=== PATIENT | female | born 1930 | race Caucasian/White ===

== ENCOUNTER 2019-11-29 10:44 | Inpatient (IN) | payer MEDICARE ==
[~2019-11-29] VITALS: Ht 167.6 cm; Wt 64.0 kg
[2019-11-29 14:54] LABS: INR 1.1 (0.8-3.0); PROTHROMBIN TIME 12.3 SECONDS (9.7-12.8)
[2019-11-29] MEDS ORDERED: NORVASC2.5 MG PO (15:01)
[2019-11-29] MEDS ORDERED: XALATAN EYE DROPS OD (15:02)
[2019-11-29] MEDS ORDERED: SIMBRINZA 0.2%-18 ML OP (15:03)
[2019-11-29 15:04] LABS: ALBUMIN 3.9 gm/dL (3.5-5.0); BILIRUBIN,TOTAL 1.3 mg/dL (0.0-1.0); CALCIUM 8.8 mg/dL (8.4-10.2); CREATININE, serum 1.11 (0.52-1.25); POTASSIUM 3.9 mmol/L (3.4-5.0); TOTAL PROTEIN 6.8 gm/dL (6.4-8.2)
[2019-11-29] MEDS ORDERED: MULTI-VITAMIN W1 TA1 PO (15:04)
[2019-11-29] MEDS ORDERED: EPA FISH OIL1 SGL PO (15:04)
[2019-11-29] MEDS ORDERED: B-121000 MCG PO (15:05)
[2019-11-29] MEDS ORDERED: MAGNESIUM250 M1 PO (15:06)
[2019-11-29] MEDS ORDERED: NATURAL POTASS595 MG (15:07)
[2019-11-29] MEDS ORDERED: IRON 27 MG PO (15:08)
[2019-11-29] MEDS ORDERED: METAMUCIL3.4 GM/DOS PO (15:09)
[2019-11-29] MEDS ORDERED: STOOL SOFTENER100 M2 PO (15:09)
[2019-11-29 15:11] LABS: PRE ALBUMIN 22.4 mg/dL (17.6-36.0)
[2019-11-29] MEDS ORDERED: MELATONIN5 M1 PO (15:11)
[2019-11-29] MEDS ORDERED: CBD OIL PO (15:16)
[2019-11-29] MEDS ORDERED: [UNRECOGNIZED DRUG - OTHER] (15:17)
--- NOTE | 2019-11-29 15:30 | NUR ---
Patient arrived via EMS for right femoral neck fracture. Transferred to bed with slide board and four person assist. A/O, answers questions appropriately. Intermittent confusion noted with recent past recall, but recalls distant past easily. RLE with 1+ edema noted. RLE externally rotated and shortened. Pulses palpable bilaterally. Salinas catheter in place on admission, draining clear yellow urine. INT in place to RFA, flushes easily. ONDINA Mcrae with Hospitalist group notified of consult.
[2019-11-29 17:03] VITALS: BP 160/71; PULSE 80; TEMP 97.5
--- NOTE | 2019-11-29 17:32 | NUR ---
tash Cancino PA here to see patient.
--- NOTE | 2019-11-29 17:32 | NUR ---
Dr Bennett here to see patient.
[2019-11-29 20:25] VITALS: BP 153/73; PULSE 76; TEMP 98
[2019-11-29 23:37] VITALS: BP 160/74; PULSE 82; TEMP 97.8
[2019-11-30] VITALS (14 sets, daily range): BP systolic 130–176; BP diastolic 56–74; PULSE 61–82; TEMP 97.8–98.6
--- NOTE | 2019-11-30 05:34 | NUR ---
Patient rested well throughout the night. PRN Morphine given for pain. Repositioning noted to be painful for patient. Intermittent confusion noted, but pleasant with staff. Salinas catheter draining clear, yellow urine. Patient NPO since midnight in prep for surgery today. Oral swabs given for dry mouth. Will continue to monitor.
[2019-11-30 06:57] LABS: BASO # 0.1 (0.0-0.2); BASO % 0.7 % (0.0-2.0); EOS % 0.4 % (0-4.0); GRAN # 5.1 (1.4-6.5); GRAN % 73.6 % (42.2-75.2); HEMATOCRIT 41.8 % (37.0-47.0); HEMOGLOBIN 13.8 g/dl (12.5-16.0); LYMPH % 14.4 % (20.0-51.0); MEAN CELL VOLUME 92 fl (80.0-100.0); MEAN CORPUSCULAR HEMOGLOBIN 30 pg (27.0-31.0); MEAN CORPUSCULAR HGB CONC 33 g/dl (33.0-37.0); MEAN PLATELET VOLUME 10.8 fl (7.4-10.4); MONO # 0.7 (0.1-0.6); MONO % 10.6 % (1.7-9.3); PLATELET COUNT 225 K/mm3 (130-400); RED BLOOD COUNT 4.55 M/mm3 (4.10-5.30); REDCELL DISTRIBUTION WIDTH-CV 14.2 % (11.5-14.5)
[2019-11-30 07:23] LABS: CALCIUM 8.3 mg/dL (8.4-10.2); CREATININE, serum 1.03 (0.52-1.25); POTASSIUM 3.7 mmol/L (3.4-5.0)
--- NOTE | 2019-11-30 10:30 | NUR ---
Patient alert, A/O x3, short term memory loss noted. O2 3l/nc per nasal cannula. RLE with 1+ edema noted. RLE pulses intact, externally rotated, shortened. No numbness or tingling to RLE. C/o pain to RLE. No other c/o at this time.
--- NOTE | 2019-11-30 11:50 | NUR ---
VICENTE contacted the patient's son, Benjamin (ph#[phone]), to discuss discharge plan. The patient has advanced dementia. The patient lives in [place] with her daughter (Ana), son-in-law, and granddaughter. Benjamin reports that the patient needs assistance with bathing and that she does not have any DME. Benjamin states his sister helps the patient with bathing. The patient's PCP is Dr. Radha Cotto and she receives her medications at [facility]. Benjamin reports no difficulties obtaining her meds. The patient's advanced directives are in her chart. Her DPOA-HC was her (Kwadwo). The alternate is her son, Benjamin. Benjamin reports that Kwadwo lives with him and that he takes care of him. Benjamin reports that they would like for the patient to go to [facility] upon discharge. VICENTE explained the Patient Choice Form to Benjamin. Benjamin gave VICENTE his verbal consent. VICENTE contacted and faxed a referral to Rochelle at [facility]. Rochelle reports that they are able to accept the patient. Rochelle states that Dr. Cotto will be the accepting provider and that the phone number for the [id number] is [phone]. The [id number] report is [phone]. VICENTE to inform the patient's son and will continue to follow.
--- NOTE | 2019-11-30 12:40 | NUR ---
Patient to surgery at this time.
[2019-12-01 04:03] VITALS: BP 153/87; PULSE 81; TEMP 98.6
--- NOTE | 2019-12-01 05:33 | NUR ---
Patient noted to be restless throughout the night and was attempting to get out of bed several times, but complained that she couldn't move her leg. Patient oriented several times to situation, but it appeared that she would forget quickly. Patient noted to pull out IV to right forearm. New INT started to left hand. Patient c/o pain to right hip. Tylenol given. Daughter at bedside. Bulky dressing to right hip. Bed bath completed and bedding changed this morning. Will continue to monitor.
[2019-12-01 05:45] LABS: HEMATOCRIT 37.8 % (37.0-47.0); HEMOGLOBIN 12.7 g/dl (12.5-16.0)
[2019-12-01 07:34] VITALS: BP 139/54; PULSE 72; TEMP 97.8
--- NOTE | 2019-12-01 08:00 | NUR ---
PATIENT IS ALERT AND PLEASANTLY CONFUSED. HX OF DEMENTIA. PATIENT PULLED IV SITE OUT LAST NIGHT. NEW SITE IN LEFT HAND COVERED WITH COBAN AND ACEWRAP. PATIENT DENIES PAIN. VSS. RIGHT HIP DRESSING IS CD&I WITH AQUACEL. TEDS & SCD'S TO BLE. ACUNA TO DD. EAT/DRINK SUFFICENT AMOUNTS. NO C/O N/V. STUDENT NURSE WORKING WITH PATIENT TODAY, SEE CHARTING.
[2019-12-01 12:00] VITALS: BP 147/58; PULSE 77; TEMP 97.6
--- NOTE | 2019-12-01 13:34 | NUR ---
Patient resting comfortably in bed. Resident has an aquacell dressing on right hip and is CDI. Pedal pulses present +2, cap refill <3. Patient rated right hip pain 7/10. This student nurse administered Tylenol [id number], offered ice pack, and a warm blanket. Resident has no further complaints. Reported off to LEXI Elias.
--- NOTE | 2019-12-01 14:43 | NUR ---
The patient is to tentatively discharge tomorrow, 12/02, to [facility]. VICENTE met with the patient's son, Benjamin, to review discharge plan. The patient son is agreeance to the discharge tomorrow. Benjamin states that his sister, Ana, will provide transportation. VICENTE presented and explained the IM form to the patient's son, Benjamin. Benjamin verbalized understanding, signed, and he was provided a copy. VICENTE faxed updates to Rochelle at [facility]. VICENTE to continue to follow.
--- NOTE | 2019-12-01 15:15 | NUR ---
REPORTED OFF TO LEXI SNEED
[2019-12-01 16:58] VITALS: BP 164/63; PULSE 77; TEMP 97.7
--- NOTE | 2019-12-01 19:01 | NUR ---
Patient has done well this afternoon, voiding without difficulties after catheter removal. Had small BM this afternoon. Denies pain at this time and minimal pain when up to bedside comode. Denies further needs at this time. Reported off to night baker.
[2019-12-01 20:08] VITALS: BP 154/84; PULSE 84; TEMP 98.5
[2019-12-01 23:52] VITALS: BP 156/61; PULSE 88; TEMP 98.1
--- NOTE | 2019-12-02 04:48 | NUR ---
Patient noted to be restless the majority of the night. Dr. Melara notified about agitation and attempting to pull out IV and get out of bed, and he ordered Seroquel 50mg as a one time order. This was administered, but not much relief was noted. PRN Tylenol was given to assist with pain. This was not effective. PRN Dewey given at 0330 as patient stated her hip was really bothering her. Patient or daughter has not called out. Patient is a light sleeper, and patient's daughter was instructed to let this nurse know if they needed anything as I didn't want to wake her up. Constant reminders to leave anjelica wrap to left hand alone d/t IV being there. Patient up to the bathroom every hour this shift. Will continue to monitor.
[2019-12-02 07:14] VITALS: BP 131/55; PULSE 74; TEMP 97.4
[2019-12-02] MEDS ORDERED: ASPIRIN 32325 MG/TA1 PO (08:43)
[2019-12-02] MEDS ORDERED: TYLENOL 325MG325 MG PO (08:44)
[2019-12-02] MEDS ORDERED: DULCOLAX S10 MG/SUPP RC (08:45)
[2019-12-02] MEDS ORDERED: COLACE 100100 MG/CAP PO (08:46)
[2019-12-02] MEDS ORDERED: NORCO 325 MG-51 TAB PO (09:05)
--- NOTE | 2019-12-02 09:05 | NUR ---
HOSPITALIST ROUNDING AT BEDSIDE
--- NOTE | 2019-12-02 09:52 | NUR ---
The [id number] was done. The patient is to discharge today, 12/02, to [facility]. Transportation to be by private vehicle, via the patient's daughter (Ana). No additional needs at this time.
--- NOTE | 2019-12-02 10:15 | NUR ---
This nurse removed INT out of right hand. Catheter tip in tact. Education for s/s of infection provided. Pt tolerated well.
[2019-12-02 10:33] VITALS: BP 131/55; PULSE 74; TEMP 97.4
--- NOTE | 2019-12-02 11:47 | NUR ---
PATIENT DISCHARING VIA WC TO PERSONAL VEHICLE WITH DAUGHTER TO [facility]. STUDENT NURSE BAILEY'Jose IV, ASSISTED PATIENT TO GET DRESSED AND PACK FOR DISCHARGE. CALLED REPORT TO NURSE AT FACILITY. PATIENT DISCHARGED.
== END 2019-12-02 11:47 | disposition swing bed (61) | DRG 470 ==
LOC: SURG 10:44
PROVIDERS: Orthopaedic Surgery; Physician Assistant; ADMIT Student in an Organized Health Care Education/Training Program
PROC: 0SRR019 Replacement of Right Hip Joint, Femoral Surface with Metal Synthetic Substitute, Cemented, Open Approach (ICD-10-PCS; principal; 2019-11-29)
DX: S72.001A Fracture of unspecified part of neck of right femur, initial encounter for closed fracture (principal); I50.30 Unspecified diastolic (congestive) heart failure; W01.0XXA Fall on same level from slipping, tripping and stumbling without subsequent striking against object, initial encounter; I25.10 Atherosclerotic heart disease of native coronary artery without angina pectoris; E78.5 Hyperlipidemia, unspecified; F03.90 Unspecified dementia, unspecified severity, without behavioral disturbance, psychotic disturbance, mood disturbance, and anxiety; K59.00 Constipation, unspecified; I11.0 Hypertensive heart disease with heart failure; Y93.89 Activity, other specified; Y92.89 Other specified places as the place of occurrence of the external cause; Y99.8 Other external cause status; Z95.5 Presence of coronary angioplasty implant and graft; Z86.73 Personal history of transient ischemic attack (TIA), and cerebral infarction without residual deficits; Z88.8 Allergy status to other drugs, medicaments and biological substances; Z88.2 Allergy status to sulfonamides; Z91.018 Allergy to other foods; Z91.048 Other nonmedicinal substance allergy status
CPT/HCPCS: 99222-AI; 99231-AI; 99232-AI; 99239; A9284; C1776; J0690; J1100; J2250; J2270; J2405; J2704; J3010; J7120